=== PATIENT | female | born 1970 | race Caucasian/White ===

== ENCOUNTER 2016-05-27 09:13 | Day surgery (SDC) | payer OTHER ==
[~2016-05-27] VITALS: Ht 157.5 cm; Wt 99.8 kg
[~2016-05-27 09:13] MED LIST: ADVIL200 M1 PO; AMITRIPTYLINE100 MG PO; BACLOFEN10 MG PO; DARVOCET-N 1001 EACH PO; DIAZEPAM10 MG PO; DIAZEPAM5 MG PO; DICLOFENAC SODI75 MG PO; ELAVIL100 MG PO; ERGOCALCIF50000 UNIT PO; FLEET ENEMA-AD118 ML PR; GABAPENTIN600 MG PO; GRALISE600 MG PO; HYDROXYZINE PAM25 MG PO; IBUPROFEN800 MG PO; LIDODERM 5% P1 PATCH TD; LORTAB 5-325 M1 EACH PO; MILK OF MAGN PO; MOBIC15 MG PO; MOTRIN800 MG PO; NAPROSYN500 MG PO; NORCO 5/3251 TABLET PO; OXYCODONE HCL10 MG PO; PEPCID20 MG PO; PERCOCET 5/31 TABLET PO; PREDNISONE10 MG PO; PREDNISONE20 MG PO; PROAIR HFA8.5 GM IH; PROVENTIL17 GM IH; REGLAN10 MG PO; SOMA350 MG PO; TRAMADOL HCL50 MG PO; VALIUM10 MG PO; VALIUM5 MG PO; VICODIN,LORT1 TABLET PO; VOLTAREN75 MG PO; ZITHROMAX Z-PA250 MG PO
[2016-05-27 10:21] VITALS: BP 124/79
[2016-05-27 14:39] VITALS: BP 180/80
[2016-05-27 15:15] VITALS: BP 136/73
== END 2016-05-27 15:38 | disposition home or self-care (01) ==
LOC: SDC 09:13
PROC: 0UB74ZZ Excision of Bilateral Fallopian Tubes, Percutaneous Endoscopic Approach (ICD-10-PCS; principal; 2016-05-27)
PROC: 0UB14ZZ Excision of Left Ovary, Percutaneous Endoscopic Approach (ICD-10-PCS; principal; 2016-05-27)
DX: N83.12 Corpus luteum cyst of left ovary (principal); J45.909 Unspecified asthma, uncomplicated; F17.200 Nicotine dependence, unspecified, uncomplicated
CPT/HCPCS: 88305; J0330; J0461; J1170; J1885; J2175; J2250; J2405; J3010

== ENCOUNTER 2016-07-29 16:52 | Observation (INO) | payer OTHER ==
[~2016-07-29] VITALS: Ht 157.5 cm; Wt 104.0 kg
[2016-07-29 20:29] LABS: HEMATOCRIT 40.3 % (36.0-46.0); MCH 27.7 PG (29.0-34.0); MCHC 32.5 G/DL (30.0-36.0); MCV 85.2 FL (83-99); MEAN PLAT.VOLUME 9.1 uM^3 (9.5-12.4); PLATELET COUNT 306 K/uL (156-360); RBC DIS.WIDTH-CV 13.5 % (11.8-14.6); RBC DIS.WIDTH-SD 41.6 % (39-53); RED BLOOD COUNT 4.73 M/uL (3.80-5.20); WHITE BLOOD COUNT 15.2 K/uL (4.1-10.2)
[2016-07-29 20:40] LABS: CHLORIDE 105 mEq/L (99-109); POTASSIUM 4.1 mEq/L (3.7-5.4); SODIUM 140 mEq/L (136-147)
[2016-07-29 20:42] LABS: GLUCOSE 85 mg/dL (70-99)
[2016-07-29 20:43] LABS: ANION GAP 8 MEQ/L (2-14)
[2016-07-29 20:44] LABS: TOTAL BILIRUBIN 0.3 mg/dL (0.0-1.0)
[2016-07-29 20:46] LABS: ALKALINE PHOSPHATASE 71 IU/L (3-129); ERTH.SED.RATE 45 MM/HR (0-20); GFR ESTIMATE (CALCULATED) > 59 mL/min/
[2016-07-29 20:47] LABS: UREA NITROGEN (BUN) 11 mg/dL (9-23)
[2016-07-29 21:18] LABS: C-REACTIVE PROTEIN 12.5 MG/L (0-10)
[2016-07-30 05:14] VITALS: BP 122/59
[2016-07-30 06:47] LABS: HEMATOCRIT 37.9 % (36.0-46.0); MCH 27.1 PG (29.0-34.0); MCHC 31.7 G/DL (30.0-36.0); MCV 85.7 FL (83-99); MEAN PLAT.VOLUME 9.6 uM^3 (9.5-12.4); PLATELET COUNT 262 K/uL (156-360); RBC DIS.WIDTH-CV 13.7 % (11.8-14.6); RBC DIS.WIDTH-SD 42.9 % (39-53); RED BLOOD COUNT 4.42 M/uL (3.80-5.20); WHITE BLOOD COUNT 12.5 K/uL (4.1-10.2)
[2016-07-30 07:13] LABS: ALKALINE PHOSPHATASE 73 IU/L (3-129); ANION GAP 10 MEQ/L (2-14); CHLORIDE 105 MEQ/L (99-109); GFR ESTIMATE (CALCULATED) > 59 mL/min/; POTASSIUM 4.4 MEQ/L (3.7-5.4); SAMPLE HEMOLYSIS CHECK 0; SAMPLE ICTERIC CHECK 0; SAMPLE LIPEMIA CHECK 0; SODIUM 139 MEQ/L (136-147); TOTAL BILIRUBIN 0.5 MG/DL (0.0-1.0); UREA NITROGEN (BUN) 9 mg/dL (9-23)
[2016-07-30 07:21] LABS: GLUCOSE 115 mg/dL (70-99)
[2016-07-30 08:14] VITALS: BP 150/70
[2016-07-30] MEDS ORDERED: HYDROCODON-ACE1 EAC9 PO (11:42)
[2016-07-30] MEDS ORDERED: DIAZEPAM5 MG PO (11:43)
[2016-07-30 11:44] VITALS: BP 174/85
[2016-07-30] MEDS ORDERED: CYCLOBENZAPRINE10 MG PO (11:44)
[2016-07-30] MEDS ORDERED: FLEXERIL5 MG PO (12:22)
== END 2016-07-30 13:38 | disposition home or self-care (01) ==
LOC: EME 16:52 → EDOF 07-30 04:00 → 5WEST 07-30 05:03
PROVIDERS: Internal Medicine; Physician Assistant
DX: M65.28 Calcific tendinitis, other site (principal); J44.9 Chronic obstructive pulmonary disease, unspecified; F17.200 Nicotine dependence, unspecified, uncomplicated; H91.90 Unspecified hearing loss, unspecified ear; G89.29 Other chronic pain
CPT/HCPCS: 72125; 72147; 72156; 72157; 72158; 80053; 82945; 84157; 85027; 85651; 86140; 87040; 87070; 87205; 89051; 94640; 99281; 99285; G0378; J1100; J1200; J1644; J1885; J2060; J2270; J2405; J2765; J2930; J7030; S0028

== ENCOUNTER 2016-12-19 00:29 | Emergency (ER) | payer OTHER ==
[~2016-12-19] VITALS: Ht 157.5 cm; Wt 97.3 kg
[~2016-12-19 00:29] MED LIST changes: +CYCLOBENZAPRINE10 MG PO; +FLEXERIL5 MG PO; +HYDROCODON-ACE1 EAC9 PO
[2016-12-19 01:42] LABS: HEMATOCRIT 42.3 % (36.0-46.0); MCH 28.2 PG (29.0-34.0); MCHC 33.6 G/DL (30.0-36.0); MCV 83.9 FL (83-99); MEAN PLAT.VOLUME 9.4 uM^3 (9.5-12.4); PLATELET COUNT 339 K/uL (156-360); RBC DIS.WIDTH-CV 13.2 % (11.8-14.6); RBC DIS.WIDTH-SD 40.4 % (39-53); RED BLOOD COUNT 5.04 M/uL (3.80-5.20); WHITE BLOOD COUNT 21.5 K/uL (4.1-10.2)
[2016-12-19 01:52] LABS: CHLORIDE 104 mEq/L (99-109); POTASSIUM 3.6 mEq/L (3.7-5.4); SODIUM 138 mEq/L (136-147)
[2016-12-19 01:54] LABS: GLUCOSE 81 mg/dL (70-99)
[2016-12-19 01:55] LABS: ANION GAP 12 MEQ/L (2-14)
[2016-12-19 01:58] LABS: GFR ESTIMATE (CALCULATED) > 59 mL/min/; UREA NITROGEN (BUN) 10 mg/dL (9-23)
[2016-12-19 02:03] LABS: TROP-I INTERPRETATION NEGATIVE; TROPONIN-I < 0.01 ng/mL (0.0-0.30)
[2016-12-19 02:05] LABS: QUANTITATIVE HCG < 4.0 MIU/ML
[2016-12-19 02:30] VITALS: BP 101/90
== END 2016-12-19 02:34 | disposition home or self-care (01) ==
LOC: EME → EDBD 00:29 → EME 02:34
PROVIDERS: Emergency Medicine
DX: F41.9 Anxiety disorder, unspecified (principal); F17.200 Nicotine dependence, unspecified, uncomplicated; Z88.0 Allergy status to penicillin
CPT/HCPCS: 71020; 80048; 84484; 84702; 85027; 93005; 99281; 99284; J2060

== ENCOUNTER 2017-01-01 12:49 | Emergency (ER) | payer OTHER ==
[~2017-01-01] VITALS: Ht 160 cm; Wt 91.7 kg
[2017-01-01] MEDS ORDERED: ZITHROMAX Z-PA250 MG PO (16:04)
[2017-01-01 16:22] VITALS: BP 169/84
== END 2017-01-01 16:22 | disposition home or self-care (01) ==
LOC: EME 12:49
DX: J40 Bronchitis, not specified as acute or chronic (principal); R51 Headache; J02.9 Acute pharyngitis, unspecified; Z88.0 Allergy status to penicillin; H91.90 Unspecified hearing loss, unspecified ear; F17.200 Nicotine dependence, unspecified, uncomplicated
CPT/HCPCS: 71020; 87651 90; 93005; 94640; 99281; 99284; J1100

== ENCOUNTER → 2017-06-02 | Outpatient (CLI) | payer OTHER | END | disposition home or self-care (01) | LOC: CDC 14:00 | DX: Z01.810 Encounter for preprocedural cardiovascular examination (principal); G56.22 Lesion of ulnar nerve, left upper limb; G56.02 Carpal tunnel syndrome, left upper limb; R00.1 Bradycardia, unspecified | CPT/HCPCS: 93000 ==